=== PATIENT | male | born 1945 ===

== ENCOUNTER 2022-10-31 09:32 | Emergency (ER) | payer MEDICARE, OTHER, SELFPAY ==
[2022-10-31 09:35] VITALS: BP 144/69; PULSE 52; RESP 16; TEMP 36.6; O2SAT 98; BMI 20.1
--- NOTE | 2022-10-31 09:36 | ED.GENADULT ---
HPI - General Adult General Chief complaint: General Medical Stated complaint: Sinus infection Time Seen by Provider: 10/31/22 09:36 Source: patient Limitations: no limitations History of Present Illness HPI narrative: 76-year-old male who presents to the ER with concerns for sinus infection. Patient has longstanding history of sinus infection and usually does daily nasal rinses. Patient has been seen by ENT in the past and is usually treated with amoxicillin and a short course of prednisone. Patient denies history of hypertension or diabetes. Patient is without fever chills. Symptoms are similar to past flares of his sinus infections and denies any new sick contacts or other complaints at this time. Related Data Previous Rx's Medication Instructions Recorded amoxicillin 500 mg capsule 500 mg PO TID 10 days #30 caps 10/31/22 prednisone 20 mg tablet 40 mg PO DAILY 4 days #8 tabs 10/31/22 Allergies Allergy/AdvReac Type Severity Reaction Status Date / Time No Known Allergies Allergy Verified 10/31/22 09:35 Review of Systems Review of Systems: General: No fever, no chills ENT: Positive sinus pressure nasal discharge no sore throat Cardiovascular: No chest pain, no peripheral edema, no shortness of breath Respiratory: No dyspnea, no sputum production, no cough Muscle skeletal: Positive malaise, no back pain, no neck pain, no extremity pain Skin: No rash Immunology: No immunocompromised Hematology: No bleeding, no bruising PMFSH Past Medical History Attestation statement: The following information was validated with the patient. Social History Social History Advance Directives: No Advance Directives Information Provided: Yes Physical Exam ED Vital Signs: Vital Signs - 24 hr 10/31/22 09:35 Temperature 97.8 F Pulse Rate 52 Respiratory Rate 16 Blood Pressure 144/69 H Pulse Oximetry 98 Oxygen Delivery Method Room Air BMI result Body Mass Index 20.1 General appearance: Awake, alert, cooperative, in no acute distress Skin: Warm, dry, no rash Eyes: PERRL, EOMI, no icterus ENT: Positive sinus pressure and tenderness frontal sinuses positive nasal discharge. Throat is otherwise clear uvula midline Neck: Soft supple full range of motion Pulmonary: Breath sounds clear to auscultation bilaterally, no accessory muscle use Cardiovascular: Regular rate and rhythm, no murmurs and rubs Extremities: No deformity, nontender, no peripheral edema noted Neuro: Alert oriented x3, no focal deficit Psych: Normal affect Course Course Course Narrative: Sinusitis Rhinitis Pharyngitis Seasonal allergies 76-year-old male with a longstanding history of chronic sinusitis home and has been evaluated by ENT multiple times. Patient units treated with amoxicillin when he has a flare like this. Also gets a course of prednisone. Patient states he feels a little run down with this infection which is similar to past events. No other complaints at this time denies cough fever chills chest pain or shortness of breath. Plan to treat patient with amoxicillin a short prednisone burst at this time Discharge Plan Discharge Clinical Impression: Sinusitis, acute Patient Disposition: Home, Self-Care Instructions: Sinusitis (ED) Additional Instructions: As you had recurrent sinusitis call your ENT for follow-up Return if symptoms worsen Medications as directed Prescriptions: New amoxicillin 500 mg capsule 500 mg PO TID 10 Days Qty: 30 0RF prednisone 20 mg tablet 40 mg PO DAILY 4 Days Qty: 8 0RF
== END 2022-10-31 10:02 | disposition home or self-care (01) ==
PROVIDERS: Emergency Provider Emergency Medicine Emergency Medical Services; PCP Internal Medicine
DX: J01.90 Acute sinusitis, unspecified (principal)
CPT/HCPCS: 99282

== ENCOUNTER 2022-11-07 09:09 | Emergency (ER) | payer MEDICARE, OTHER, SELFPAY ==
[2022-11-07 09:14] VITALS: BP 137/54; PULSE 51; RESP 17; TEMP 35.6; O2SAT 97; BMI 19.9
--- NOTE | 2022-11-07 09:25 | ED.URI ---
HPI - URI/Sore Throat General Chief Complaint: Upper Respiratory Symptoms Stated Complaint: sinus issues Time Seen by Provider: 11/07/22 09:20 Source: patient Mode of arrival: ambulatory History of Present Illness HPI Narrative: 76-year-old male with a past medical history chronic sinusitis, pharyngitis, allergies, presenting to the ED complaining of persistent sinus infection x1-2 weeks. Patient admits he was recently seen and treated in our ED on 10/31/22, prescribed amoxicillin and prednisone x4 days, reports symptoms mildly improved with prednisone however once finished short course symptoms recurred. Admits is still taking amoxicillin, has 3 more days. Patient requesting longer duration of prednisone. Admits uses saline nasal rinses at home without relief. Admits tested for COVID-19 at home yesterday and was negative. Denies fever, chills, drainage from ear, sore throat, difficulty swallowing, cough, SOB MD elicited complaint: nasal congestion and sinus pain Related Data Previous Rx's Medication Instructions Recorded amoxicillin 500 mg capsule 500 mg PO TID 10 days #30 caps 10/31/22 prednisone 20 mg tablet 40 mg PO DAILY 4 days #8 tabs 10/31/22 fluticasone propionate 50 2 spray intranasal DAILY #16 grams 11/07/22 mcg/actuation nasal spray,suspension (Flonase Allergy Relief) prednisone 20 mg tablet 40 mg PO DAILY 3 days #6 tabs 11/07/22 Allergies Allergy/AdvReac Type Severity Reaction Status Date / Time No Known Allergies Allergy Verified 10/31/22 09:35 Review of Systems Review of Systems: Constitutional: No Fever, No Chills ENT/Mouth: No Ear Pain, + Nasal Congestion, + Sinus Pain, No Hoarseness, No sore throat, + Rhinorrhea, No Swallowing Difficulty Cardiovascular: No Chest Pain, No SOB Respiratory: No Cough, No Sputum, No Wheezing Gastrointestinal: No Nausea, No Vomiting, No Diarrhea, No Constipation, No Abdominal pain Genitourinary: No Dysuria, No Urinary Frequency, No Hematuria, No Urinary Incontinence/retention, No Urgency, No Flank Pain Musculoskeletal: No joint pain, No Myalgias, No Joint Swelling Skin: No Skin Lesions, No rash Neuro: No Weakness, No Numbness, No Paresthesias Yes all other systems are reviewed and are negative Constitutional: Constitutional: Reports as per HPI PMFSH Past Medical History Attestation statement: The following information was validated with the patient. Source: old records reviewed Social History Social History Advance Directives: Yes Advance Directives Information Provided: Yes Advance Directives on File: No Physical Exam Vital Signs: Vital Signs: Last Vital Signs Temp 96.1 F L 11/07/22 09:14 Pulse 51 11/07/22 09:14 Resp 17 11/07/22 09:14 BP 137/54 L 11/07/22 09:14 Pulse Ox 97 11/07/22 09:14 O2 Del Method Room Air 11/07/22 09:14 BMI result Body Mass Index 19.9 Const: General: cooperative, healthy appearing and no acute distress Orientation/consciousness: patient oriented x3 Limitations: no limitations HEENT: Head: Yes normal to inspection and Yes atraumatic Ears: hearing grossly normal bilaterally, TM's normal bilaterally and mastoids normal General nose exam: Normal external nose present Face and sinus: Yes normal facial exam, Yes face symmetric, No crepitus and Yes sinus tenderness Throat: Yes posterior oropharynx normal, Yes tonsils normal, Yes uvula midline, No uvula laterally displaced and No uvular edema Eyes: General: appearance normal, both eyes and all related structures EOM: EOMs intact bilaterally Neck: Neck: Yes normal visual inspection and Yes no meningeal signs Resp: Effort & Inspection: normal respiratory effort, no respiratory distress and no stridor Auscultation: clear to auscultation bilaterally, no crackles and no rhonchi Cardio: Rate: regular rate Heart sounds: S1 normal heart sound present and S2 normal heart sound present Skin: Rashes: no rashes Wounds: no wounds Neuro: General: patient oriented x3, tone normal and no meningeal signs Gait exam (Neuro): Normal gait present Extrem: General: Yes normal to inspection Medical Decision Making Medical Decision Making MDM Narrative: 76-year-old male with a past medical history chronic sinusitis, pharyngitis, allergies, presenting to the ED complaining of persistent sinus infection x1-2 weeks. On exam vital signs stable, NAD, nontoxic appearing, nasal congestion noted with sinus tenderness. Uvula midline, posterior oropharynx WNL, no stridor, lungs CTA. Concern for sinusitis/chronic sinusitis vs viral infection. No evidence of CLIENT SUPPORT ASSOCIATE or mastoiditis. Offered viral testing however patient declined Had lengthy discussion with patient that PO steroids are not indicated in sinusitis and recommended avoidance however patient persistently requesting, will give additional 3 days worth of prednisone 40 mg Recommended continuation of previously prescribed amoxicillin and follow-up with ENT Results discussed with patient including worrisome signs and symptoms and strict return precautions, and when to return to the emergency department. They verbalized understanding and feel safe for discharge at this time. Differential Diagnosis Differential Diagnoses: The differential diagnosis associated with the presentation includes As above Lab Data MDM Lab Attestation statement: I reviewed the patient's lab results. Radiology Impression Discussion of test interpretation with radiology: I have reviewed the radiologist's reading. External Record Review External record reviewed: Inpatient record, Office record, Outpatient record, Prior outpatient labs, Prior outpatient radiology, Primary care record and Outside ED record Tests considered The following testing was considered but not selected: As above Discharge Plan Discharge Clinical Impression: Sinusitis Patient Disposition: Home, Self-Care Instructions: Sinusitis (ED) Additional Instructions: Continue taking previously prescribed antibiotic In addition start taking prednisone for 3 additional days Please follow-up with her ear nose throat specialist Flonase should also help with congestion If symptoms persist or worsen return to the ED Prescriptions: New prednisone 20 mg tablet 40 mg PO DAILY 3 Days Qty: 6 0RF fluticasone propionate [Flonase Allergy Relief] 50 mcg/actuation spray,suspension 2 spray intranasal DAILY Qty: 16 0RF Rx Instructions: administer into each nostril No Action amoxicillin 500 mg capsule 500 mg PO TID 10 Days Qty: 30 0RF prednisone 20 mg tablet 40 mg PO DAILY 4 Days Qty: 8 0RF Referrals: Shakir Boyd [Physician] - Pasha Mcintosh MD [Primary Care Provider] -
== END 2022-11-07 10:15 | disposition home or self-care (01) ==
PROVIDERS: Emergency Provider Internal Medicine; PCP Internal Medicine
DX: J32.9 Chronic sinusitis, unspecified (principal)
CPT/HCPCS: 99283

== ENCOUNTER 2024-12-10 10:33 | Outpatient (AMB) | payer MEDICARE, OTHER, SELFPAY ==
--- NOTE | 2024-12-10 11:15 | AM.OFFWIN_ITS ---
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 Reports Sinus pressure/pain and chest congestion, loss of appetite, and loss of taste/smell and Fatigue. H/o Chronic Sinusitis - being managed by [facility]. He does have deviated septum from an injury as a child. Reports unable to use Oral Decongestants due to Nausea/vomiting. Review of Systems Const All systems reviewed & are unremarkable except as noted in HPI and below Physical Exam Vital Signs: Last Vital Signs Temp 97.9 F 12/10/24 11:16 Pulse 51 12/10/24 11:16 BP 120/54 L 12/10/24 11:16 Pulse Ox 97 12/10/24 11:16 Oxygen Delivery Method Room Air 12/10/24 11:16 BMI result Body Mass Index 19.8 Const General: comfortable and no acute distress Nutritional Appearance: thin Orientation/consciousness: patient oriented x3 HEENT Head: Yes normocephalic Ears: external ears normal and TM abnormal with fluid behind the TM bilateral General nose exam: Abnormal external nose present nasal deviation and Abnormal mucous membranes and turbinates present boggy and erythematous Face and sinus: Yes sinuses nontender Mouth: moist mucous membranes Throat: Yes uvula midline Neuro General: patient oriented x3 Psych Speech and movement: Normal speech and movement present Assessment & Plan Assessment & Plan (1) Sinusitis: Code(s): J32.9 - Chronic sinusitis, unspecified Qualifiers: Sinusitis location: other Chronicity: chronic Qualified Code(s): J32.8 - Other chronic sinusitis Plan: Continue with ENT f/u Has an appointment with them in March Medications: Discontinued amoxicillin Discontinued Reason: Patient Completed Course 500 mg PO TID 10 days 30 caps 0RF Coding Level of Care Code New Pt Level 4 (98929) Diagnoses Other chronic sinusitis J32.8 Sinusitis location: other Chronicity: chronic Time Spent (min) 20
[2024-12-10 11:16] VITALS: BP 120/54; PULSE 51; TEMP 36.6; O2SAT 97; BMI 19.8
--- OUTSIDE RECORDS SUMMARY | 2024-12-10 11:18 | XMS_ITS | Patient Health Record ---
Author Organization [facility] Address [address] [place] [id number] Care Team Providers Care Ski Lift Attendant Name Role Phone Elroy Johns [phone] Reason For Referral No Information Plan Of Treatment No Information
== END 2024-12-10 11:45 | disposition home or self-care (01) ==
PROVIDERS: PCP Internal Medicine; Visit Provider Nurse Practitioner Family
DX: J32.8 Other chronic sinusitis (principal)

== ENCOUNTER → 2024-12-10 10:33 | Outpatient (BNVA) | payer MEDICARE, OTHER, SELFPAY | PROVIDERS: PCP Internal Medicine; Visit Provider Nurse Practitioner Family | DX: J32.8 Other chronic sinusitis (principal) | CPT/HCPCS: 99202 ==